=== PATIENT | male | born 2000 | race Caucasian/White ===

== ENCOUNTER 2021-11-11 18:12 | Emergency (ER) | payer OTHER ==
[~2021-11-11] VITALS: Ht 177.8 cm; Wt 95.3 kg
[2021-11-11] MEDS ORDERED: EPIPEN0.3 MG/0.1 IM (21:51)
[2021-11-11 22:04] VITALS: BP 132/87
== END 2021-11-11 22:05 | disposition home or self-care (01) ==
LOC: ER 18:12
DX: R06.02 Shortness of breath (principal); T78.01XA Anaphylactic reaction due to peanuts, initial encounter; Z91.010 Allergy to peanuts; Y92.89 Other specified places as the place of occurrence of the external cause